=== PATIENT | female | born 1945 | race Caucasian/White ===

== ENCOUNTER 2019-06-12 20:36 | Emergency (ER) | payer BC, SELFPAY ==
[2019-06-12 20:40] VITALS: BP 144/79; PULSE 76; RESP 21; TEMP 36.7; O2SAT 99
--- NOTE | 2019-06-12 20:54 | W.ED.GENAD ---
Discharge Plan Disposition Patient Disposition: HOME Condition: Good Discharge Details Chief Complaint: Chest Pain Clinical Impression: Chest pain, Splenic mass Primary Care Provider: Huyen Sandoval ED Provider: Kenn Lewis Home Meds and New Rx's Prescriptions: No Action losartan 50 mg Tablet 50 mg PO BID RF: 0 lamotrigine 150 mg Tablet 150 mg PO DAILY RF: 0 atorvastatin 20 mg Tablet 20 mg PO HS RF: 0 metoprolol succinate 50 mg Tablet Extended Release 24 Hr 50 mg PO HS RF: 0 trazodone 100 mg Tablet 100 mg PO HS RF: 0 magnesium 200 mg Tablet 400 mg PO DAILY RF: 0 omega 4-wtt-ryr-fish oil [Fish Oil] 1,000 mg (120 mg-180 mg) Capsule 1 cap PO DAILY RF: 0 Discharge Instructions Instructions: Chest Pain (ED), Gastroesophageal Reflux Disease (ED) Additional Instructions: At this time your cardiac markers are normal and showed no evidence of heart attack at this time. With your symptoms completely resolving with the GI cocktail I do feel that there certainly is a component of reflux. Please avoid spicy foods, tomato-based products, citrus-based foods. Please use Pepto-Bismol or Maalox as needed for return of the symptoms. If you notice any worsening or return of your symptoms, or any new symptoms such as vomiting, diarrhea, fever, chills, shortness of breath, chest pain, numbness, weakness, or fainting , please return immediately to the emergency department for reevaluation. Please follow up with your primary care provider as soon as possible for reassessment and reevaluation. As always, it was a pleasure participating in your medical care today. Also the CT scan did show an incidental finding of a 2.6 cm lobular mass near the area of where your spleen would be. This is likely nonspecific and not a problem or it could be a remnant of your spleen, however would recommend close follow-up and repeat evaluation with your primary care provider about this. When you do arrive home at [facility] please use your lateral device to transmit your pacemaker findings. Referrals: Emmanuel Brock [ NON-[facility] STAFF PHYSICIAN] - Discharge Data Discharge Date/Time-TO BE ENTERED AT DEPARTURE: 06/13/19 00:25 Medical Decision Making This is a 73-year-old female with a past medical history of a pacemaker, hypertension, high cholesterol, tobacco use, who presents for 1 day of mild shortness of breath neck pressure, came on today, does not appear to be exertional related. She states that she felt just like this when she had a pacemaker placed 2 years ago. She denies any chest tightness, chest pain, neck pain, arm neck or shoulder pain. She did have cataract surgery 1 week ago. She denies history of PE or DVT. Exam is relatively unremarkable. Differential is broad, but does include atypical but less likely ACS, PE, musculoskeletal chest pain, dehydration or electrolyte abnormality. Symptoms and consistent with dissection. Will interrogate the pacemaker, perform cardiac work-up, give GI cocktail, get a d-dimer and reassess. 9:52 PM Patient's laboratory work-up including troponin have returned normal. Were unable to interrogate her pacemaker here, and the [employer] liaison will come to interrogated. D-dimer is elevated, will get CTA of the chest to rule out PE. Patient's pain does appear to be resolved with GI cocktail which is certainly encouraging. We will continue to monitor closely. Also of note the x-ray does show evidence of an age-indeterminate vertebral body compression deformity with 50% height loss, however upon historical questioning of the patient she states that this was from an old horse accident years ago. She has no acute pain. No signs of cauda equina syndrome. 10:47 PM Patient's symptoms completely resolved after GI cocktail. Laboratory work-up is negative for any evidence of troponin elevation or significant abnormality. D-dimer was elevated, CTA shows no evidence of pulmonary embolism or dissection. There is an atypical 2.6 cm lobular mass in the area of the spleen is an incidental finding but no other acute process. 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 We will encourage close follow-up. There is some diffuse patchy groundglass attenuation, may represent edema or atypical infection however she has no clinical symptoms of pneumonia no cough, fever or chills. Symptoms are inconsistent with atypical pneumonia. At this time the patient continues to feel well. We are pending repeat troponin and EKG. If these continue to remain normal I feel that she can be safely discharged home as her signs and symptoms being consistent with ACS significant cardiac etiology. Also of note we did have the [employer] surgical device sales representative evaluate the readings from the patient's pacemaker. No abnormalities noted. 12:30 AM Patient continues to remain pain-free, repeat EKG and repeat troponin are unremarkable. Signs and symptoms clinically consistent with ACS, dissection, PE or life-threatening etiology. I feel at this time the patient be safely discharged home with close follow-up with her PCP. She had complete resolution of her symptoms after taking GI cocktail, so certainly may be a component of her symptoms. Discussed appropriate dietary for avoidance of reflux. Discussed red flags which to return. I have extensively reviewed the treatment plan and discharge instructions with the patient and their family. I have addressed all patient concerns at this time. The patient and family was made aware of what symptoms to monitor for that would warrant a return to the emergency department. Discussed the plan with the patient and family, they demonstrate verbal understanding and agreement with our assessment and plan at this time. 1:58 AM The patient has sent the finalized report from her lateral device, and we again contacted [employer] and on review of the report there is no evidence of dysrhythmia, or abnormality whatsoever. EKG 20: 43 Rate 81, electronic ventricular pacing with complete capture, negative for SCARBOSSA criteria. EKG 23: 54 Rate 81, electronic ventricular pacing with complete capture, negative for SCARBOSSA criteria. IMPRESSION: 1. No acute cardiopulmonary process. 2. Age indeterminate vertebral body compression deformity with approximate 50% height loss. Recommend clinical correlation and consider further evaluation with MRI if there is concern for acute fracture. Thank you for allowing us to participate in the care of your patient. FINDINGS: Tubes, catheters and devices: Dual lead left pacemaker with leads terminating in the right atrium and right ventricular apex. Pulmonary arteries: No pulmonary embolism. Aorta: Prominent coarse calcification in the suprarenal abdominal aorta. Mild thoracic aortic calcified atherosclerosis. Lungs: Emphysema. Bibasilar atelectasis/scar. Diffuse patchy ground-glass attenuation. Pleural space: Unremarkable. No pneumothorax. No pleural effusion. Heart: Cardiomegaly. Coronary artery and aortic annular calcifications. Spleen: Surgically absent. Lymph nodes: Prominent right cardiophrenic lymph node is not pathologically enlarged per size criteria. Bones/joints: Age-indeterminate small fracture line through the T11 superior endplate with slight 2-3 mm bony retropulsion and approximate 25% ventral height loss. Soft tissues: Nonspecific 2.0 x 2.6 cm lobular mass in the left upper quadrant. IMPRESSION: 1. No pulmonary embolism. 2. Age-indeterminate small fracture through the T11 superior endplate with slight 2-3 mm bony retropulsion. Recommend clinical correlation and further evaluation with MRI if there is concern for acute fracture. 3. Non-specific 2.6 cm lobular mass in the left upper quadrant is not definitely a splenule. Consider further evaluation with multiphase CT or MRI or nuclear medicine on an outpatient basis. 4. Diffuse patchy ground-glass attenuation may represent edema or atypical infection. No focal consolidation. Thank you for allowing us to participate in the care of your patient. Dictated and Authenticated by: Sanford Prather MD 06/12/2019 10:37 PM Eastern Time ([place] & [place]) HPI General Date/Time Provider Initiated Documentation: 06/12/19 20:41. HPI Narrative: This is a 73-year-old female with a past medical history of a pacemaker as well as high cholesterol hypertension tobacco use, who presents today for mild amount of shortness of breath and neck and chest heaviness that started this afternoon. Symptoms appear to be nonexertional. No particular aggravating or relieving factors. She denies any chest pain, chest tightness, arm neck or shoulder pain. She denies any exertional discomfort. She does admit to a very minimal amount of pleuritic chest pain. She denies any cough fever chills or hemoptysis. She did have cataract surgery 1 week ago. Pacemaker was placed 2 years ago at [facility]. She denies any history of myocardial infarction but does admit to a family history of massive cardiac disease at 75. She has no other complaints at this time. No other modifying factors. No history of blood clot in the past. Related Data Home Medications Medication Instructions Recorded Confirmed atorvastatin 20 mg PO HS 06/12/19 06/12/19 lamotrigine 150 mg PO DAILY 06/12/19 06/12/19 losartan 50 mg PO BID 06/12/19 06/12/19 magnesium 400 mg PO DAILY 06/12/19 06/12/19 metoprolol succinate 50 mg PO HS 06/12/19 06/12/19 omega 8-ixx-ezh-fish oil [Fish Oil] 1 cap PO DAILY 06/12/19 06/12/19 trazodone 100 mg PO HS 06/12/19 06/12/19 Allergies Allergy/AdvReac Type Severity Reaction Status Date / Time aripiprazole [From Abilify] Allergy Unverified 06/12/19 20:50 lisinopril Allergy Unverified 06/12/19 20:50 General Stated Complaint: Chest Pain HARIS: 2 Review of Systems All systems reviewed & are unremarkable except as noted in HPI and below PFSH Social History Do you feel safe at home: Yes Exam Narrative Exam Narrative: 1.Const: Well-nourished, Well-developed, appearing stated age 2.Eyes: PERRL, no conjunctival injection, and symmetrical lids. 3.ENT: Atraumatic external nose and ears. Moist MM. Neck: Symmetric, trachea midline, No thyromegaly. 4.CVS: +S1/S2, No murmurs or gallops. Peripheral pulses 2+ and equal in all extremities. Brisk capillary refill in all extremities. No tenderness over the left anterior chest wall where the pacemaker is. No redness. 5.RESP: Unlabored respiratory effort. Clear to auscultation bilaterally. No wheezes rales or rhonchi 6.GI: Soft, Nontender/Nondistended, No hepatosplenomegaly. No guarding or rebound. 7.MSK: Normocephalic/Atraumatic, Extremities w/o deformity or ttp No cyanosis or clubbing, Normal movement of all extremities. No significant calf edema. Minimal tenderness in the left lower lateral calf. No other tenderness whatsoever. 8.Skin: Warm, Dry. No rashes or lesions. 9.Neuro: hand laster II-XII grossly intact. Sensation grossly intact, no focal neurologic deficits. 10.Psych: (AAO) x3. Appropriate mood and affect Course Vital Signs Vital signs: Vital Signs Temperature 36.7 C 06/12/19 20:40 Pulse 76 06/12/19 20:40 Respiratory Rate 21 06/12/19 20:40 Blood Pressure 144/79 H 06/12/19 20:40 Pulse Oximetry 99 06/12/19 20:40 Temperature 36.7 C 06/12/19 20:40 Temperature Source Skin 06/12/19 20:40 Pulse 76 06/12/19 20:40 Respiratory Rate 21 06/12/19 20:40 Respiratory Effort Non-Labored 06/12/19 20:45 Blood Pressure 144/79 H 06/12/19 20:40 Blood Pressure Position Supine 06/12/19 20:40 Pulse Oximetry 99 06/12/19 20:40 Oxygen Delivery Method Room Air 06/12/19 20:40 Oxygen Flow Rate 0 06/12/19 20:40 Pain Level 6 06/12/19 20:40
[2019-06-12 20:56] VITALS: RESP 23
[2019-06-12] MEDS: Acetaminophen 500 MG TAB 1000 MG PO (20:59)
[2019-06-12] MEDS: Normal Saline 1,000 ML 1000 ML IV (21:00)
[2019-06-12 21:04] VITALS: BP 124/83; PULSE 71; PULSE 72; RESP 18
--- NOTE | 2019-06-12 21:09 | DI.RAD_ITS ---
EXAM: XR CHEST 2V PA LATERAL INDICATION: central chest pain. COMPARISON: No exams were available for comparison TECHNIQUE: 2D digital imaging was performed. FINDINGS: The heart size and pulmonary vasculature are within normal limits. There is atherosclerosis in the t horacic aorta. Pacing wires are in good position overlying the right atrium and right ventricle. Th e lungs are clear. The lungs are hyperinflated suggesting underlying COPD. No focal infiltrate, eff usion or pneumothorax is identified. Degenerative changes are seen in the spine. There is a tanja dustin deformity seen at T12. There is loss of 40 percent of the height of the vertebral body. This i s age indeterminate. IMPRESSION: 1. No acute pulmonary process. 2. Age-indeterminate compression fracture deformity of the T12 vertebral body. Follow-up as clinical ly appropriate.
[2019-06-12 21:15] LABS: Abs Immature Grans 0.01 k/cumm (0.0-0.09); Absolute Basophil Count 0.06 k/cumm (0.0-0.2); Absolute Eosinophil Count 0.23 k/cumm (0.0-0.7); Absolute Lymphocyte Count 2.68 k/cumm (1.2-3.4); Absolute Monocyte Count 1.22 k/cumm (0.11-0.7); Basophils % 0.7; Eosinophils % 2.8; HCT 41.3 % (36.0-46.0); HGB 13.9 g/dL (12.0-15.5); Immature Grans % 0.1 %; Lymphocytes % 32.7; Mean Corp. HGB Concentration 33.7 g/dL (32.0-36.0); Mean Corpuscular Hemoglobin 30.3 pg (27.0-33.0); Mean Platelet Volume 9.3 fL (8.0-11.0); Monocytes % 14.9; Neutrophils % 48.8; Platelet Count 274 x1000/uL (130-400); RBC 4.59 m/cumm (4.00-5.20); RBC Distribution Width 15.2 % (11.7-14.6)
--- NOTE | 2019-06-12 21:15 | DI.VRAD_ITS ---
PROCEDURE INFORMATION: Exam: XR Chest, 2 Views Exam date and time: 06/12/2019 8:53 PM Age: 73 years old Clinical indication: Other: Central chest pain TECHNIQUE: Imaging protocol: XR of the chest Views: 2 views. COMPARISON: No relevant prior studies available. FINDINGS: Tubes, catheters and devices: Left dual lead pacemaker with leads projecting over the right atrium and right ventricular apex. Lungs: Unremarkable. No consolidation. Pleural space: Unremarkable. No pleural effusion. No pneumothorax. Heart/Mediastinum: Unremarkable. No cardiomegaly. Bones/joints: Age-indeterminate lower thoracic vertebral body compression deformity with approximate 50% height loss. Other findings: Surgical clips in left upper quadrant. IMPRESSION: 1. No acute cardiopulmonary process. 2. Age indeterminate vertebral body compression deformity with approximate 50% height loss. Recommend clinical correlation and consider further evaluation with MRI if there is concern for acute fracture. Dictated and Authenticated by: Sanford Prather MD. Ordering:RAUDEL Hawk MD
[2019-06-12 21:28] LABS: ALT 29 U/L (14-59); AST 26 U/L (15-37); Albumin 3.9 g/dL (3.4-5.0); Alkaline Phosphatase 76 U/L (46-116); Anion Gap 10.3 mmol/L (3-11); BUN 24 mg/dL (7-18); Bilirubin, Total 0.3 mg/dL (0.2-1.0); CO2 26.7 mmol/L (21.0-32.0); CREATININE 0.94 mg/dL (0.55-1.02); Calcium 9.5 mg/dL (8.5-10.1); Chloride 107 mmol/L (98-107); Glucose 108 mg/dL (74-106); Lipase 373 U/L (73-393); NT-proBNP 229 pg/mL (<300); Potassium 3.8 mmol/L (3.5-5.1); Sodium 144 mmol/L (136-145); TSH (W/Ref FT4) 2.37 uIU/mL (0.36-3.74); Total Protein 7.4 g/dL (6.4-8.2)
[2019-06-12 21:32] LABS: PTT Activated 23.6 sec (21.0-31.4); Prothrombin Time 9.9 sec (9.3-11.0)
[2019-06-12 21:41] VITALS: BP 93/66; PULSE 70; RESP 16; O2SAT 95
[2019-06-12 21:42] LABS: Troponin I < 0.05 ng/Ml (<0.06)
--- NOTE | 2019-06-12 21:42 | NUR.NOTE ---
Attempted to interrogate pacer, unable to get reading with either blue or mejia probe. Debbie aware
[2019-06-12 21:44] LABS: D-Dimer 1350 ng/mlFEU (<500)
--- NOTE | 2019-06-12 22:08 | DI.CT_ITS ---
EXAM: CT CHEST PE CTA CLINICAL HISTORY: elevated dimer, CP, recent surgery. TECHNIQUE: Imaging Protocol: Axial CT angiography was performed with multi-slice acquisition and mu lti-planar and/or 3D reconstructions. CONTRAST MATERIAL: Intravenous: Omnipaque 350 Contrast volume:61 mL COMPARISON: XR CHEST 2V PA LATERAL from 06/12/2019 FINDINGS: Pulmonary Arteries: No evidence of filling defect to suggest pulmonary emboli. Tracheobronchial tree: Patent where visualized. Mediastinum and Tiffany: No dominant adenopathy or fluid collection. Pulmonary parenchyma: There is atelectasis or scarring in the lung bases. Scattered ground-glass opa cities are present. No focal consolidating infiltrate is seen. Emphysematous changes are seen in th e lungs. Pleura: No effusion or pneumothorax. Heart: Mild cardiomegaly. No pericardial effusion. No evidence of right heart strain. Coronary walter ry calcifications. Aorta: Calcifications. No evidence of aneurysm or dissection. Upper abdomen: The patient is status post splenectomy. There is a 2 x 2.6 centimeter soft tissue ma ss in the left upper quadrant. This is nonspecific. While this may represent a splenule, other soft tissue masses cannot be excluded. Bones: Degenerative changes seen in the spine. Compression deformity of the T11 vertebral body. The re is loss of 25-40 percent of the height of the vertebral body anteriorly. There is minimal retropu lsion into the spinal canal but no central spinal canal stenosis is present. Tubes, Catheters, and Lines: There is a dual lead pacemaker with the leads terminating in the right a trium and right ventricle. IMPRESSION: 1. No evidence of a pulmonary embolus, thoracic aortic dissection or aneurysm. 2. Patchy ground-glass opacities in the lungs. This may represent edema or an atypical infection. No focal consolidation is present. 3. Nonspecific 2.6 cm mass in the left upper quadrant of the abdomen. The patient is status post spl enectomy. This may represent a splenule. Soft tissue masses cannot be excluded. 4. Age-indeterminate fracture of the superior endplate of T11. Follow-up as clinically appropriate. If there is concern for an acute fracture, an MRI may be obtained. DATA REPOSITORY: All CT scans at this facility are submitted to the National Radiology Data Registry (NRDR) Dose Index Registry (DIR) with the [employer] (ACR). RADIATION OPTIMIZATION: All CT scans at this facility use at least one of these dose optimization te chniques: automated exposure control; mA and/or kV adjustment per patient size (includes targeted exa ms where dose is matched to clinical indication); or iterative reconstruction.
[2019-06-12] MEDS: Omnipaque 350 MG/ML 100 ML BTL IJ (22:11)
--- NOTE | 2019-06-12 22:37 | DI.VRAD_ITS ---
PROCEDURE INFORMATION: Exam: CT Angiography Chest With Contrast Exam date and time: 06/12/2019 10:06 PM Age: 73 years old Clinical indication: Other: Elevated d-dimer, chest pain, recent surgery; Prior surgery; Surgery date: 6+ months TECHNIQUE: Imaging protocol: Computed tomographic angiography of the chest with intravenous contrast. 3D rendering: MIP and/or 3D reconstructed images were created by the technologist. Radiation optimization: All CT scans at this facility use at least one of these dose optimization techniques: automated exposure control; mA and/or kV adjustment per patient size (includes targeted exams where dose is matched to clinical indication); or iterative reconstruction. Contrast material: [id number]; Contrast volume: 61 ml; Contrast route: IV RT AC 20G; COMPARISON: XR CHEST 2V PA LATERAL 06/12/2019 9:09 PM FINDINGS: Tubes, catheters and devices: Dual lead left pacemaker with leads terminating in the right atrium and right ventricular apex. Pulmonary arteries: No pulmonary embolism. Aorta: Prominent coarse calcification in the suprarenal abdominal aorta. Mild thoracic aortic calcified atherosclerosis. Lungs: Emphysema. Bibasilar atelectasis/scar. Diffuse patchy ground-glass attenuation. Pleural space: Unremarkable. No pneumothorax. No pleural effusion. Heart: Cardiomegaly. Coronary artery and aortic annular calcifications. Spleen: Surgically absent. Lymph nodes: Prominent right cardiophrenic lymph node is not pathologically enlarged per size criteria. Bones/joints: Age-indeterminate small fracture line through the T11 superior endplate with slight 2-3 mm bony retropulsion and approximate 25% ventral height loss. Soft tissues: Nonspecific 2.0 x 2.6 cm lobular mass in the left upper quadrant. IMPRESSION: 1. No pulmonary embolism. 2. Age-indeterminate small fracture through the T11 superior endplate with slight 2-3 mm bony retropulsion. Recommend clinical correlation and further evaluation with MRI if there is concern for acute fracture. 3. Non-specific 2.6 cm lobular mass in the left upper quadrant is not definitely a splenule. Consider further evaluation with multiphase CT or MRI or nuclear medicine on an outpatient basis. 4. Diffuse patchy ground-glass attenuation may represent edema or atypical infection. No focal consolidation. Dictated and Authenticated by: Sanford Prather MD. Ordering:RAUDEL Hawk MD
--- NOTE | 2019-06-12 22:39 | NUR.NOTE ---
Pt reports pain down to 1/10 after GI Cocktail. Plan for repeat trop and EKG at 0000. Pt aware of and agreeable to plan.
[2019-06-12 22:40] VITALS: BP 123/49; PULSE 68; RESP 16; O2SAT 95
[2019-06-13 00:11] LABS: Troponin I < 0.05 ng/Ml (<0.06)
[2019-06-13 00:22] VITALS: BP 128/43; PULSE 68; RESP 20; O2SAT 95
== END 2019-06-13 00:25 | disposition home or self-care (01) ==
PROVIDERS: Emergency Provider Student in an Organized Health Care Education/Training Program; PCP Registered Nurse
DX: R07.9 Chest pain, unspecified (principal); R93.5 Abnormal findings on diagnostic imaging of other abdominal regions, including retroperitoneum; R79.1 Abnormal coagulation profile; Z95.0 Presence of cardiac pacemaker; I10 Essential (primary) hypertension
CPT/HCPCS: 71275; 80053; 83690; 93005; 96360; 96361; 99285; 71046; 83880; 84443; 84484; 85025; 85379; 85610; 85730; 93010; 99284; J3490

== ENCOUNTER 2020-06-08 14:58 | Outpatient (REF) | payer BC, SELFPAY ==
[2020-06-08 15:42] LABS: Abs Immature Grans 0.02 10^3/uL (0.0-0.06); Absolute Basophil Count 0.07 10^3/uL (0.0-0.2); Absolute Eosinophil Count 0.21 10^3/uL (0.0-0.7); Absolute Lymphocyte Count 2.43 10^3/uL (1.2-3.4); Absolute Monocyte Count 0.91 10^3/uL (0.1-0.8); Absolute Neutrophil Count 5.45 10^3/uL (1.2-6.7); Basophils % 0.8; Eosinophils % 2.3; HGB 14.2 g/dL (11.2-15.7); Immature Grans % 0.2; Lymphocytes % 26.7; MCH 30.8 pg (27.0-33.0); MCHC 32.3 % (32.0-36.0); MCV 95.4 fL (80-95); MPV 10.1 fL (8.0-11.0); Nucleated RBC 0 %; Platelet Count 233 10^3/uL (130-400); RBC 4.61 10^6/uL (3.93-5.22); RDW 13.8 % (11.7-14.6); RDW-SD 48.9 fL; WBC 9.09 10^3/uL (4.4-10.8)
[2020-06-08 15:58] LABS: Iron 69 ug/dL (50-170); Total Iron Binding Capacity 342 ug/dL (250-450); Transferrin Sat 20 % (15-50)
[2020-06-08 16:25] LABS: ALT 33 U/L (14-59); AST 24 U/L (15-37); Albumin 4.4 g/dL (3.4-5.0); Alkaline Phosphatase 78 U/L (46-116); BUN 20 mg/dL (7-18); Bilirubin, Total 0.4 mg/dL (0.2-1.0); CREATININE 1.04 mg/dL (0.55-1.02); Calcium 9.4 mg/dL (8.5-10.1); Calculated LDL 112 mg/dL (<100); Chloride 105 mmol/L (98-107); Cholesterol 189 mg/dL (<200); Estimated GFR 52.09 (mL/min/1.73m2); Ferritin 67 ng/mL (8-252); Glucose 93 mg/dL (74-106); HDL Cholesterol 67 mg/dL (40-60); Magnesium 2.3 mg/dL (1.8-2.4); Potassium 4.5 mmol/L (3.5-5.1); Sodium 141 mmol/L (136-145); TSH (W/Ref FT4) 1.36 uIU/mL (0.36-3.74); Total Protein 7.8 g/dL (6.4-8.2); Triglyceride 52 mg/dL (<150)
[2020-06-08 16:26] LABS: Vitamin B12 > 2000 pg/mL (193-986)
== END 2020-06-08 15:18 ==
LOC: NCHCN 14:58
PROVIDERS: PCP Registered Nurse; Visit Provider Physician Assistant
DX: I10 Essential (primary) hypertension (principal); E78.5 Hyperlipidemia, unspecified; R25.2 Cramp and spasm
CPT/HCPCS: 80053; 80061; 82607; 82728; 83540; 83550; 83735; 84443; 85025

== ENCOUNTER 2021-02-04 12:59 | Emergency (ER) | payer BC, SELFPAY ==
--- NOTE | 2021-02-04 13:15 | W.ED.GENAD ---
Discharge Plan Disposition Patient Disposition: HOME Condition: Stable Discharge Details Clinical Impression: Acute knee pain Primary Care Provider: Emmanuel Brock ED Provider: Eunice Chino Home Meds and New Rx's Prescriptions: New diclofenac sodium 3 % gel 1 applic topical BID Qty: 100 RF: 0 No Action losartan 50 mg Tablet 50 mg PO BID RF: 0 lamotrigine 150 mg Tablet 150 mg PO DAILY RF: 0 atorvastatin 20 mg Tablet 20 mg PO HS RF: 0 metoprolol succinate 50 mg Tablet Extended Release 24 Hr 50 mg PO HS RF: 0 trazodone 100 mg Tablet 100 mg PO HS RF: 0 magnesium 200 mg Tablet 400 mg PO DAILY RF: 0 omega 5-xmg-beb-fish oil [Fish Oil] 1,000 mg (120 mg-180 mg) Capsule 1 cap PO DAILY RF: 0 aspirin [Aspir-81] 81 mg Tablet,Delayed Release (Dr/Ec) RF: 0 Discharge Instructions Instructions: Knee Pain (ED) Additional Instructions: ice, rest use your brace tylenol 650 mg every 4 hours for pain Diclofenac gel topically Follow-up with orthopedics, I have supplied an orthopedist for you to follow-up with You do have a Rushing's cyst in your knee likely contributing to your discomfort Referrals: Quincy Romero MD [ [facility] STAFF PHYSICIAN] - Discharge Data Discharge Date/Time-TO BE ENTERED AT DEPARTURE: 02/04/21 17:51 Medical Decision Making <JEANNA North - Last Filed: 02/05/21 08:05> This is a 75-year-old female who fell 4 days ago, noticed knee pain developing a day or so later. She reports the pain was initially anterior but now is posterior and extends into her calf. Denies fever, any other injury, chest pain, shortness of breath, numbness, tingling, weakness. Denies history of DVT or PE. Her knee appears stable, no erythema, warmth. Clinically this very well could be musculoskeletal given her fall but given the pain began the day later certainly would like to rule out potential DVT. Unfortunately it is a long holiday weekend and ultrasound is likely not available until Saturday, I would rather not have the patient on Lovenox until that time. I will obtain a left knee x-ray and obtain an ultrasound to evaluate for potential DVT and/or Rushing's cyst. Radiology department was contacted and they are in fact able to call him and aerospace technician to perform the study today. At time of signout pending x-ray and ultrasound Medical Records Medical records reviewed: Yes I reviewed the patient's medical records. <JEANNA Matson - Last Filed: 02/04/21 19:59> Transition of care from Kimani Fuchs PA-C at 1600 pending ultrasound interpretation and x-ray interpretation Patient is well in appearance, she is ambulatory with antalgic gait She has been seen at home She is placed in a hinged knee brace Diclofenac prescription and Tylenol recommended Orthopedic referral provided for popliteal Rushing's cyst, noted on ultrasound, x-ray without acute abnormality Return precautions discussed and patient understanding, no evidence of secondary infection, distal pulses intact HPI <JEANNA North - Last Filed: 02/05/21 08:05> General Mode of arrival: ambulatory. Date/Time Provider Initiated Documentation: 02/04/21 13:15. Limitations to Documentation: no limitations. Information obtained by: patient. HPI Narrative: This is a 75-year-old female, past medical history that includes hypertension, PVD, presenting complaining of left leg pain. Patient states that she fell 4 days ago, mechanical slip and fall, landing on her left side. Initially she did not think she hurt anything but subsequently at the next day she noticed some left anterior knee pain which is mild. A day later she developed more substantial posterior left knee pain as well as calf pain. She is not anticoagulated, denies striking her head, neck pain, chest pain, shortness of breath, history of DVT or PE. She has not taken any medication for her symptoms. Reports baseline neuropathy, altered sensation in her legs but denies any new altered sensation. Patient states that she typically ambulates without assistance. Reports her pain is moderate at rest, worse with ambulation or movement. Related Data Home Medications Medication Instructions Recorded Confirmed atorvastatin 20 mg PO HS 06/12/19 02/04/21 lamotrigine 150 mg PO DAILY 06/12/19 02/04/21 losartan 50 mg PO BID 06/12/19 02/04/21 magnesium 400 mg PO DAILY 06/12/19 02/04/21 metoprolol succinate 50 mg PO HS 06/12/19 02/04/21 omega 7-izu-tba-fish oil [Fish Oil] 1 cap PO DAILY 06/12/19 02/04/21 trazodone 100 mg PO HS 06/12/19 02/04/21 aspirin [Aspir-81] 02/04/21 diclofenac sodium 1 applic TOPICAL BID #100 g 02/04/21 Previous Rx's Medication Instructions Recorded diclofenac sodium 1 applic TOPICAL BID #100 g 02/04/21 Allergies Allergy/AdvReac Type Severity Reaction Status Date / Time aripiprazole [From [facility]] Allergy Unverified 02/04/21 13:33 lisinopril Allergy Unverified 02/04/21 13:33 General HARIS: 2 Review of Systems <JEANNA North - Last Filed: 02/05/21 08:05> Constitutional Constitutional: Denies fever(s) and Denies weakness Cardiovascular Cardiovascular: Denies chest pain and Denies dyspnea Respiratory Respiratory: Denies dyspnea Musculoskeletal Musculoskeletal: Denies deformity, Reports arthralgias, Reports numbness (Baseline) and Reports stiffness Integumentary/Breasts Skin/Breast: Denies rash Neurologic Neurologic: Denies weakness Hematologic/Lymphatic Hematologic/Lymphatic: Denies easy bleeding and Denies easy bruising PFSH <JEANNA North - Last Filed: 02/05/21 08:05> Social History Smoking/Tobacco Use Status: Never Smoking risk assessment performed?: Yes Alcohol Intake: never Substance use type: former substance user Do you feel safe at home: Yes Exam <JEANNA North - Last Filed: 02/05/21 08:05> Const General: cooperative, healthy appearing, comfortable and no acute distress Orientation: alert and awake [facility] Head: normal to inspection, normocephalic and atraumatic Eyes General: appearance normal, both eyes and all related structures Conjunctivae: conjunctivae normal Neck Neck: normal visual inspection, full ROM, trachea midline and supple Resp Effort & Inspection: normal respiratory effort and able to speak in complete sentences Auscultation: clear to auscultation bilaterally Cardio Rate: regular rate Rhythm: regular rhythm Back/Spine/Pelvis Back: No back tenderness Skin General skin exam: no rashes or lesions noted Neuro General: patient alert, patient awake, moves all extremities and no focal motor deficits Cognition: normal cognition Speech: speech normal Gait: antalgic Motor: muscle tone normal throughout Sensory Exam: no sensory deficits noted Extrem General: full ROM and capillary refill normal Other: Left knee diffuse mild anterior swelling with tenderness across the anterior and medial aspect. There is no erythema, warmth, ecchymosis. Patient does have posterior left knee discomfort that extends jail down the calf, no palpable cord, obvious swelling, erythema or ecchymosis. Positive Homans' sign. 1+ bilateral dorsalis pedal pulses. Normal capillary refill. Knee with full range of motion, stable, mild discomfort with anterior draw. No discomfort with varus or valgus stress. Psych Appearance: grossly normal Mental Status: mental status grossly normal Sign Out <JEANNA North - Last Filed: 02/05/21 08:05> Sign Out Data: Sign Out Comment: Awaiting left knee x-ray and ultrasound Last updated by Kimani Fuchs PA at 02/04/21 15:55
[2021-02-04 13:28] VITALS: BP 106/81; PULSE 66; RESP 16; TEMP 36.6; O2SAT 97
--- NOTE | 2021-02-04 13:30 | DI.RAD_ITS ---
Exam(s) XR KNEE LT 4V+ EXAM: XR KNEE LT 4V+ CLINICAL HISTORY: fall/pain. TECHNIQUE: 2D digital imaging was performed. COMPARISON: No exams were available for comparison FINDINGS: BONES: No acute fracture is present. No bony destructive lesion is seen. JOINTS: The knee is normally aligned. No joint effusion is seen. Mild degenerative changes. SOFT TISSUE: Vascular calcifications IMPRESSION: No acute abnormality. DATA REPOSITORY: RADIATION DOSE DELIVERED:
--- NOTE | 2021-02-04 14:30 | DI.US_ITS ---
Exam(s) US LOWER EXTREMITY VENOUS LT EXAM: US LOWER EXTREMITY VENOUS LT CLINICAL HISTORY: pain, concern for dvt. TECHNIQUE: Lower extremity venous ultrasound performed using grayscale, color-flow, and spectral Do ppler analysis. COMPARISON: No exams were available for comparison FINDINGS: The common femoral, femoral and popliteal veins demonstrate normal compressibility, augmentation, and color Doppler. The posterior tibial veins are patent. No saphenous vein thrombosis or other superfi cial venous thrombosis is seen. A knee joint effusion is seen. Edema is noted in the medial calf re gion. IMPRESSION: Joint effusion and calf edema. No evidence of DVT. DATA REPOSITORY:
--- NOTE | 2021-02-04 16:14 | DI.VRAD_ITS ---
PROCEDURE INFORMATION: Exam: XR Left Knee Exam date and time: 02/04/2021 1:35 PM Age: 75 years old Clinical indication: Injury; Fall; Blunt trauma left knee; Best obtainable due to pain TECHNIQUE: Imaging protocol: XR Left knee. Views: 4 or more views. COMPARISON: No relevant prior studies available. FINDINGS: Bones/joints: No acute fracture. No dislocation. No focal osseous lesion. No significant degenerative change. No joint effusion by plain film. Soft tissues: No soft tissue radiopaque foreign body. IMPRESSION: No acute findings. Dictated and Authenticated by: Rodolfo Brewer MD. Ordering:JULIETH Harman MD
[2021-02-04 16:24] VITALS: BP 146/48; PULSE 68; RESP 18; TEMP 37.5; O2SAT 99
--- NOTE | 2021-02-04 16:37 | DI.VRAD_ITS ---
PROCEDURE INFORMATION: Exam: US Duplex Left Lower Extremity Veins, Limited Exam date and time: 02/04/2021 2:35 PM Age: 75 years old Clinical indication: Fall, left-sided trauma. Increasing posterior left knee / calf pain. TECHNIQUE: Imaging protocol: Real-time Duplex ultrasound of the Left Lower Extremity with 2-D mejia scale, color Doppler flow and spectral waveform analysis with image documentation. Limited exam focused on the left lower extremity veins. COMPARISON: CR XR KNEE LT 4V+ 02/04/2021 3:37 PM FINDINGS: Left deep veins: Unremarkable. The common femoral, femoral, proximal profunda femoral and popliteal veins are patent without thrombus. Normal Doppler waveforms. Normal compressibility and/or augmentation response. Left superficial veins: Unremarkable. Saphenofemoral junction is patent without thrombus. Soft tissues: Left Rushing's cyst measuring 2.9 x 1.6 x 2.8 cm. Soft tissue edema within the medial left calf region. IMPRESSION: 1. No deep venous thrombosis of the left lower extremity. 2. Left Rushing's cyst measuring 2.9 x 1.6 x 2.8 cm. Soft tissue edema within the medial left calf region. Dictated and Authenticated by: Rodolfo Brewer MD. Ordering:JULIETH Harman MD
[2021-02-04] MEDS: Acetaminophen 325 MG TAB 650 MG PO (16:55)
[2021-02-04 17:49] VITALS: BP 146/48; PULSE 68; RESP 18; TEMP 37.5; O2SAT 99
== END 2021-02-04 17:51 | disposition home or self-care (01) ==
PROVIDERS: Emergency Provider Physician Assistant; PCP Internal Medicine
DX: M25.562 Pain in left knee (principal); M79.662 Pain in left lower leg
CPT/HCPCS: 29505; 99284; 73564; 93971; 99283

== ENCOUNTER 2021-04-12 08:48 | Outpatient (REF) | payer BC, SELFPAY ==
[2021-04-13 08:01] LABS: BUN 23 mg/dL (7-18); Calcium 9.4 mg/dL (8.5-10.1); Calculated LDL 78 mg/dL (<100); Cholesterol 148 mg/dL (<200); Estimated GFR 54.35 (mL/min/1.73m2); Glucose 103 mg/dL (74-106); HDL Cholesterol 59 mg/dL (40-60); Triglyceride 59 mg/dL (<150)
[2021-04-13 08:02] LABS: ALT 31 U/L (14-59); AST 24 U/L (15-37); Albumin 4.1 g/dL (3.4-5.0); Alkaline Phosphatase 90 U/L (46-116); Anion Gap 10.9 mmol/L (3-11); Bilirubin, Total 0.5 mg/dL (0.2-1.0); CO2 24.1 mmol/L (21.0-32.0); Chloride 106 mmol/L (98-107); Potassium 4.8 mmol/L (3.5-5.1); Sodium 141 mmol/L (136-145); Total Protein 7.3 g/dL (6.4-8.2)
== END 2021-04-12 08:49 | disposition home or self-care (01) ==
LOC: NCHCN 08:48
PROVIDERS: PCP Internal Medicine; Visit Provider Physician Assistant
DX: I10 Essential (primary) hypertension (principal); E78.5 Hyperlipidemia, unspecified; I73.9 Peripheral vascular disease, unspecified; I65.23 Occlusion and stenosis of bilateral carotid arteries
CPT/HCPCS: 80053; 80061

== ENCOUNTER 2021-11-22 16:47 | Outpatient (REF) | payer BC, SELFPAY ==
[2021-11-22 20:56] LABS: Anion Gap 9.8 mmol/L (3-11); BUN 20 mg/dL (7-18); CO2 25.2 mmol/L (21.0-32.0); CREATININE 0.9 mg/dL (0.55-1.02); Chloride 101 mmol/L (98-107); Glucose 84 mg/dL (74-106); Potassium 4.8 mmol/L (3.5-5.1); Sodium 136 mmol/L (136-145)
== END 2021-11-22 16:48 | disposition home or self-care (01) ==
LOC: NCHCN 16:47
PROVIDERS: PCP Internal Medicine; Visit Provider Physician Assistant
DX: U07.1 COVID-19 (principal)
CPT/HCPCS: 80048

== ENCOUNTER 2022-02-07 08:53 | Outpatient (REF) | payer BC, SELFPAY ==
[2022-02-12 14:12] LABS: 2-OH-Ethyl-Flurazepam Negative ng/mL (Cutoff: 10); 7-NH-Clonazepam 120 ng/mL (Cutoff: 10); 7-NH-Flunitrazepam Negative ng/mL (Cutoff: 10); Alpha OH-Alprazolam Negative ng/mL (Cutoff: 10); Alpha-OH Midazolam Negative ng/mL (Cutoff: 10); Alpha-OH-Triazolam Negative ng/mL (Cutoff: 10); Benzodiazepines Interpretation Positive.; Chlordiazepoxide Negative ng/mL (Cutoff: 10); Clobazam Negative ng/mL (Cutoff: 10); Clonazepam Negative ng/mL (Cutoff: 10); Diazepam Negative ng/mL (Cutoff: 10); Flurazepam Negative ng/mL (Cutoff: 10); Lorazepam Negative ng/mL (Cutoff: 10); Midazolam Negative ng/mL (Cutoff: 10); N-Desmethylclobazam Negative ng/mL (Cutoff: 10); Prazepam Negative ng/mL (Cutoff: 10); Temazepam Negative ng/mL (Cutoff: 10); Zolpidem Carboxylic acid Negative ng/mL (Cutoff: 10)
== END 2022-02-07 08:54 | disposition home or self-care (01) ==
LOC: NCHCN 08:53
PROVIDERS: PCP Internal Medicine; Visit Provider Physician Assistant
DX: F41.0 Panic disorder [episodic paroxysmal anxiety] (principal)
CPT/HCPCS: 80346

== ENCOUNTER 2022-08-14 09:55 | Outpatient (REF) | payer BC, SELFPAY ==
[2022-08-14 19:29] LABS: Abs Immature Grans 0.02 10^3/uL (0.0-0.06); Absolute Basophil Count 0.09 10^3/uL (0.0-0.2); Absolute Eosinophil Count 0.12 10^3/uL (0.0-0.7); Absolute Lymphocyte Count 1.92 10^3/uL (1.2-3.4); Absolute Monocyte Count 0.67 10^3/uL (0.1-0.8); Absolute Neutrophil Count 5.45 10^3/uL (1.2-6.7); Basophils % 1.1; Eosinophils % 1.5; HCT 45.3 % (36.0-46.0); HGB 14.7 g/dL (11.2-15.7); Immature Grans % 0.2; Lymphocytes % 23.2; MCH 30.4 pg (27.0-33.0); MCHC 32.5 % (32.0-36.0); MCV 94 fL (80-95); MPV 9.8 fL (8.0-11.0); Monocytes % 8.1; Neutrophils % 65.9; Platelet Count 247 10^3/uL (130-400); RBC 4.84 10^6/uL (3.93-5.22); RDW 13.5 % (11.7-14.6); RDW-SD 46.1 fL; WBC 8.27 10^3/uL (4.4-10.8)
[2022-08-14 19:38] LABS: ALT 33 U/L (14-59); AST 30 U/L (15-37); Albumin 4.1 g/dL (3.4-5.0); Alkaline Phosphatase 79 U/L (46-116); Anion Gap 9.4 mmol/L (3-11); BUN 35 mg/dL (7-18); Bilirubin, Total 0.5 mg/dL (0.2-1.0); CO2 25.6 mmol/L (21.0-32.0); Calculated LDL 93 mg/dL (<100); Chloride 105 mmol/L (98-107); Cholesterol 178 mg/dL (<200); Estimated GFR 59.12 (mL/min/1.73m2); Glucose 101 mg/dL (74-106); HDL Cholesterol 75 mg/dL (40-60); Potassium 4.7 mmol/L (3.5-5.1); Sodium 140 mmol/L (136-145); Total Protein 7.8 g/dL (6.4-8.2); Triglyceride 51 mg/dL (<150)
== END 2022-08-14 09:56 | disposition home or self-care (01) ==
LOC: NCHCN 09:55
PROVIDERS: PCP Internal Medicine; Visit Provider Physician Assistant
DX: Z00.00 Encounter for general adult medical examination without abnormal findings (principal); I10 Essential (primary) hypertension; E78.5 Hyperlipidemia, unspecified
CPT/HCPCS: 80053; 80061; 85025

== ENCOUNTER 2023-01-01 19:23 | Outpatient (REF) | payer BC, SELFPAY ==
[2023-01-01 20:28] LABS: Abs Immature Grans 0.03 10^3/uL (0.0-0.06); Absolute Monocyte Count 1.18 10^3/uL (0.1-0.8); Absolute Neutrophil Count 5.08 10^3/uL (1.2-6.7); Basophils % 1.1; Eosinophils % 2.1; HCT 45.1 % (36.0-46.0); HGB 15.2 g/dL (11.2-15.7); Immature Grans % 0.3; Lymphocytes % 30.6; MCH 30.5 pg (27.0-33.0); MCHC 33.7 % (32.0-36.0); MCV 91 fL (80-95); MPV 10.2 fL (8.0-11.0); Monocytes % 12.4; Neutrophils % 53.5; Platelet Count 239 10^3/uL (130-400); RBC 4.98 10^6/uL (3.93-5.22); RDW 13.8 % (11.7-14.6); RDW-SD 46.3 fL; WBC 9.49 10^3/uL (4.4-10.8)
[2023-01-01 20:42] LABS: ALT 33 U/L (14-59); AST 33 U/L (15-37); Albumin 3.9 g/dL (3.4-5.0); Alkaline Phosphatase 84 U/L (46-116); Anion Gap 9.3 mmol/L (3-11); BUN 37 mg/dL (7-18); Bilirubin, Total 0.3 mg/dL (0.2-1.0); CO2 22.7 mmol/L (21.0-32.0); CREATININE 0.9 mg/dL (0.55-1.02); Calcium 9.9 mg/dL (8.5-10.1); Chloride 105 mmol/L (98-107); Estimated GFR 66.67 (mL/min/1.73m2); Glucose 93 mg/dL (74-106); Potassium 4.6 mmol/L (3.5-5.1); Sodium 137 mmol/L (136-145); TSH (W/Ref FT4) 1.48 uIU/mL (0.36-3.74); Total Protein 7.9 g/dL (6.4-8.2)
[2023-01-03 11:04] LABS: Lyme Ab w Rflx to Lyme Confirm Negative (Negative)
[2023-01-05 00:45] LABS: Anaplasma phagocytophilum Negative (Negative); B. miyamotoi PCR Negative (Negative); Babesia divergens/MO-1 Negative (Negative); Babesia duncani Negative (Negative); Babesia microti Negative (Negative); Ehrlichia chaffeensis Negative (Negative); Ehrlichia ewingii/canis Negative (Negative); Ehrlichia muris eauclairensis Negative (Negative)
== END 2023-01-01 19:24 | disposition home or self-care (01) ==
LOC: NCHCN 19:23
PROVIDERS: PCP Internal Medicine; Visit Provider Physician Assistant
DX: R53.83 Other fatigue (principal); M25.59 Pain in other specified joint; I10 Essential (primary) hypertension; R68.83 Chills (without fever); A93.8 Other specified arthropod-borne viral fevers
CPT/HCPCS: 80053; 87798; 84443; 85025; 86618

== ENCOUNTER 2023-03-13 15:37 | Outpatient (REF) | payer BC, SELFPAY ==
[2023-03-18 11:20] LABS: 2-OH-Ethyl-Flurazepam Negative ng/mL (Cutoff: 10); 7-NH-Clonazepam 129 ng/mL (Cutoff: 10); 7-NH-Flunitrazepam Negative ng/mL (Cutoff: 10); Alpha OH-Alprazolam Negative ng/mL (Cutoff: 10); Alpha-OH Midazolam Negative ng/mL (Cutoff: 10); Alpha-OH-Triazolam Negative ng/mL (Cutoff: 10); Alprazolam Negative ng/mL (Cutoff: 10); Benzodiazepines Interpretation Positive.; Chlordiazepoxide Negative ng/mL (Cutoff: 10); Clobazam Negative ng/mL (Cutoff: 10); Clonazepam Negative ng/mL (Cutoff: 10); Diazepam Negative ng/mL (Cutoff: 10); Flurazepam Negative ng/mL (Cutoff: 10); Lorazepam Negative ng/mL (Cutoff: 10); Midazolam Negative ng/mL (Cutoff: 10); N-Desmethylclobazam Negative ng/mL (Cutoff: 10); Prazepam Negative ng/mL (Cutoff: 10); Temazepam Negative ng/mL (Cutoff: 10); Triazolam Negative ng/mL (Cutoff: 10); Zolpidem Carboxylic acid Negative ng/mL (Cutoff: 10)
== END 2023-03-13 15:38 | disposition home or self-care (01) ==
LOC: NCHCN 15:37
PROVIDERS: PCP Internal Medicine; Visit Provider Physician Assistant
DX: F41.9 Anxiety disorder, unspecified (principal)
CPT/HCPCS: 80346

== ENCOUNTER 2023-09-11 18:48 | Outpatient (REF) | payer BC, SELFPAY ==
[2023-09-11 20:38] LABS: Vitamin B12 1564 pg/mL (193-986)
[2023-09-11 20:40] LABS: Folate > 20.0 ng/mL (8.6-20.0)
== END 2023-09-11 18:49 | disposition home or self-care (01) ==
LOC: NCHCN 18:48
PROVIDERS: PCP Internal Medicine; Visit Provider Physician Assistant
DX: R20.2 Paresthesia of skin (principal)
CPT/HCPCS: 82607; 82746; 83735

== ENCOUNTER 2024-03-12 18:01 | Outpatient (REF) | payer BC, SELFPAY ==
[2024-03-12 19:27] LABS: Abs Immature Grans 0.02 10^3/uL (0.0-0.06); Absolute Basophil Count 0.09 10^3/uL (0.0-0.2); Absolute Eosinophil Count 0.12 10^3/uL (0.0-0.7); Absolute Lymphocyte Count 1.93 10^3/uL (1.2-3.4); Absolute Monocyte Count 0.81 10^3/uL (0.1-0.8); Absolute Neutrophil Count 3.93 10^3/uL (1.2-6.7); Basophils % 1.3 %; Eosinophils % 1.7 %; HCT 46.8 % (36.0-46.0); HGB 15.6 g/dL (11.2-15.7); Immature Grans % 0.3 %; MCHC 33.3 % (32.0-36.0); MCV 93 fL (80-95); MPV 10.1 fL (8.0-11.0); Monocytes % 11.7 %; Platelet Count 253 10^3/uL (130-400); RBC 5.03 10^6/uL (3.93-5.22); RDW 13.9 % (11.7-14.6); RDW-SD 47.5 fL
[2024-03-12 19:43] LABS: ALT 26 U/L (14-59); AST 18 U/L (15-37); Albumin 3.7 g/dL (3.4-5.0); Alkaline Phosphatase 99 U/L (46-116); Anion Gap 8.8 mmol/L (3-11); BUN 19 mg/dL (7-18); Bilirubin, Total 0.38 mg/dL (0.2-1.0); CO2 28.2 mmol/L (21.0-32.0); Calcium 9.9 mg/dL (8.5-10.1); Chloride 107 mmol/L (98-107); Estimated GFR 58.39 (mL/min/1.73m2); Glucose 106 mg/dL (74-106); Potassium 4.1 mmol/L (3.5-5.1); Sodium 144 mmol/L (136-145); Total Protein 7.7 g/dL (6.4-8.2)
[2024-03-16 10:34] LABS: Hepatitis C Ab w Rflx HCV PCR Negative (Negative)
== END 2024-03-12 18:02 | disposition home or self-care (01) ==
LOC: NCHCN 18:01
PROVIDERS: PCP Internal Medicine; Visit Provider Physician Assistant
DX: I10 Essential (primary) hypertension (principal); Z11.59 Encounter for screening for other viral diseases
CPT/HCPCS: 80053; 86803; 85025

== ENCOUNTER 2025-02-04 18:26 | Emergency (ER) | payer BC, SELFPAY ==
[2025-02-04] VITALS (34 sets, daily range): BP systolic 145–194; BP diastolic 58–122; PULSE 60–78; RESP 12–25; TEMP 36.3; O2SAT 92–96
--- NOTE | 2025-02-04 18:30 | RT.EKG_ITS ---
APPROVED REPORT Exam: Resting ECG Reason for Exam: Chest Pain Patient Location: E HR:73 bpm ECG Measurements Heart Rate [address] 197 P 81 QRSd 177 QRS -74 QT 476 T 102 QTc 526 Conclusion Atrial-sensed ventricular-paced rhythm...ventricular pacing tracks p-waves sgarbossa negative
--- NOTE | 2025-02-04 19:32 | W.ED.GENAD ---
Discharge Plan Disposition Patient Disposition: Home Condition: Good Discharge Details Clinical Impression: Chest pain Primary Care Provider: Candice Mitchell ED Provider: Amarilis Zaman Home Meds and New Rx's Prescriptions: Continued clonazepam 0.5 mg tablet sertraline 100 mg tablet Patient Comments: TAKE ONE TABLET BY MOUTH EVERY DAY losartan 50 mg Tablet 50 mg PO BID metoprolol succinate 50 mg Tablet Extended Release 24 Hr 50 mg PO HS trazodone 100 mg Tablet 100 mg PO HS aspirin 81 mg Tablet,Delayed Release (Dr/Ec) Discontinued lamotrigine 150 mg Tablet 150 mg PO DAILY atorvastatin 20 mg Tablet 20 mg PO HS magnesium 200 mg Tablet 400 mg PO DAILY omega 8-jgz-cis-fish oil [Fish Oil] 1,000 mg (120 mg-180 mg) Capsule 1 cap PO DAILY diclofenac sodium 3 % gel 1 applic topical BID Qty: 100 0RF Discharge Instructions Instructions: Chest Pain, Adult ED Additional Instructions: Call your primary care doctor in the morning to schedule an appointment for within the next 72 hours to followup on your visit today. You should discuss further workup for your heart including possibly a stress test and/or echocardiogram. At that visit mention that your BNP (a marker for heart failure) was elevated here today as well as your high blood pressure. It is very important that you return to the emergency department immediately for new or worsening symptoms including if your chest pain returns, you have trouble breathing, feel lightheaded, have vomiting, or if you have any other concerns. Discharge Data Discharge Date/Time-TO BE ENTERED AT DEPARTURE: 02/05/25 00:45 HPI General Mode of arrival: ambulatory. Date/Time Provider Initiated Documentation: 02/04/25 18:56. Limitations to Documentation: no limitations. Information obtained by: patient. HPI Narrative: 79yo F wtih hx complete heart block with pacer in place, PVD, HTN, no prior [place] or known CAD, presenting for chest pressure. About 90 minutes prior to arrival noted dull substernal chest pressure/discomfort that started after she finished walking the dog. Associated with some mild shortness of breath, and mild nausea. No vomiting. No lightheadedness. Discomfort does not radiate. No back pain. Has never felt similar pain in the past. Symptoms have been improving since onset, chest discomfort is now entirely gone, does still have some slight shortness of breath and nausea. She is otherwise in her usual state of health with no fevers, chills, rash, abdominal pain, flank pain, dysuria, hematuria, or other concerns. Related Data Home Medications ?Medication ?Instructions ?Recorded ?Confirmed losartan 50 mg tablet 50 mg PO BID 06/12/19 02/04/25 metoprolol succinate 50 mg 50 mg PO HS 06/12/19 02/04/25 tablet,extended release 24 hr trazodone 100 mg tablet 100 mg PO HS 06/12/19 02/04/25 aspirin 81 mg tablet,delayed 02/04/21 release clonazepam 0.5 mg tablet mg 02/04/25 sertraline 100 mg tablet mg 02/04/25 Allergies Allergy/AdvReac Type Severity Reaction Status Date / Time aripiprazole (From [facility]) Allergy Anaphylaxis Unverified 02/04/25 18:37 lisinopril Allergy Anaphylaxis Unverified 02/04/25 18:37 General Stated Complaint: Chest Pain HARIS: 3 Review of Systems Narrative: see HPI Exam Narrative Exam Narrative: General: Alert, well appearing, well nourished, in no acute distress. Head: Normocephalic, atraumatic Neck: Trachea midline, ?Neck supple. ENT: ?MMM.? Cardiac: ?RRR, no murmurs appreciated. Equal radial pulses. Resp: No respiratory distress. CTAB. Abd: ?Soft, non-distended, nontender : ?No suprapubic tenderness. No CVA tenderness. Extremities: ?No deformities.? No peripheral edema. LEs symmetric with no swelling, erythema, or calf tenderness. Neurologic: GCS 15. ? Moves all extremities freely against gravity Course Vital Signs Vital signs: Vital Signs Temperature 36.3 C L 02/04/25 18:27 Pulse 78 02/04/25 18:27 Respiratory Rate 18 02/04/25 18:27 Blood Pressure 184/82 H 02/04/25 18:27 Pulse Oximetry 92 02/04/25 18:27 Temperature 36.3 C L 02/04/25 18:27 Temperature Source Oral 02/04/25 18:27 Pulse 78 02/04/25 18:27 Respiratory Rate 18 02/04/25 18:27 Blood Pressure 184/82 H 02/04/25 18:27 Pulse Oximetry 92 02/04/25 18:27 Oxygen Delivery Method Room Air 02/04/25 18:27 Oxygen Flow Rate 0 02/04/25 18:27 Pain Level 7 02/04/25 18:27 Medical Decision Making 79yo F wtih hx complete heart block with pacer in place, PVD, HTN, no prior [place] or known CAD, presenting for chest pressure. About 90 minutes prior to arrival noted dull substernal chest pressure/discomfort that started after she finished walking the dog. Associated with some mild shortness of breath, and mild nausea. Hypertensive on arrival, vital signs otherwise reassuring. Given 325 of ASA for possible ACS while awaiting results of workup. -EKG v-paced, sgarbossa negative, not suggestive of occlusive [place] -Labs reviewed as below, CBC reassuring with no leukocytosis or anemia, CMP with no actionable abnormalities, lipase mildly elevated at 160 (pt with no epigastric tenderness, low suspicion for pancreatitis), coags normal, dimer elevated at 1200 (will get CTA for dissection and pulmonary embolism- she has no symptoms or exam findings to suggest extremity DVT or warrant US), initial troponin 34, BNP elevated at 1200 however patient with no clinical signs of heart failure. -BP improved to 145/82 -CTA independently reviewed, no aortic dissection or large saddle embolus on my view, radiology read with no acute findings. -Repeat troponins stable at 33, 37 On reassessment patient reports feeling entirely back to normal. BP again elevated however no indication of hypertensive emergency and pressure has been up and down while in the ED; would not treat this emergently. HEART score 5 (history, age, risk factors), moderate risk. BNP is elevated (no recent prior labs here to compare to) however she has no shortness of breath, crackles, hypoxia, LE edema, or pulmonary edema on CT to suggest acute heart failure. Shared decision making with patient; with reassuring workup here appropriate for close outpatient followup, likely to include stress test and echocardiogram. She would like discharge home which is reasonable with her reassuring ED workup. Discharged; discharge instructions and return precautions were reviewed with patient who verbalized understanding. All questions were answered and she is in full agreement with the plan. Lab Data Lab results reviewed: Yes I reviewed the patient's lab results. Labs: Laboratory Tests Range/Units 02/04/25 02/04/25 02/04/25 19:28 20:20 22:50 WBC (4.4-10.8) 10^3/uL 8.70 RBC (3.93-5.22) 10^6/uL 4.69 Hgb (11.2-15.7) g/dL 14.7 Hct (36.0-46.0) % 43.9 MCV (80-95) fL 94 MCH (27.0-33.0) pg 31.3 MCHC (32.0-36.0) % 33.5 RDW (11.7-14.6) % 13.3 Plt Count (130-400) 10^3/uL 245 MPV (8.0-11.0) fL 9.2 Immature Gran % % 0.2 Neutrophils % % 59.9 Lymphocytes % % 25.5 Monocytes % % 11.0 Eosinophils % % 2.6 Basophils % % 0.8 Nucleated RBC % (0.0-0.3) % 0.0 Absolute Neutrophils (1.2-6.7) 10^3/uL 5.20 Absolute Lymphocytes (1.2-3.4) 10^3/uL 2.22 Absolute Monocytes (0.1-0.8) 10^3/uL 0.96 H Absolute Eosinophils (0.0-0.7) 10^3/uL 0.23 Absolute Basophils (0.0-0.2) 10^3/uL 0.07 PT (9.1-11.1) sec 9.9 INR (0.9-1.1) 1.0 APTT (20.6-30.2) sec 24.5 D-Dimer (<500) ng/mlFEU 1238 H Sodium (136-145) mmol/L 142 Potassium (3.5-5.1) mmol/L 3.8 Chloride (98-107) mmol/L 105 Carbon Dioxide (21.0-32.0) mmol/L 28.5 Anion Gap (3-11) mmol/L 8.5 BUN (7-18) mg/dL 20 H Creatinine (0.55-1.02) mg/dL 1.0 Est GFR (CKD-EPI 2020) (mL/min/1.73m2) 58.02 Glucose (74-106) mg/dL 93 Calcium (8.5-10.1) mg/dL 9.6 Magnesium (1.8-2.4) mg/dL 2.1 Total Bilirubin (0.2-1.0) mg/dL 0.3 AST (15-37) U/L 28 ALT (14-59) U/L 27 Alkaline Phosphatase (46-116) U/L 70 Troponin I (<or=51) ng/L 34 33 37 NT-Pro-B Natriuret Pep (<300) pg/mL 1219 H Total Protein (6.4-8.2) g/dL 7.6 Albumin (3.4-5.0) g/dL 4.0 Lipase (<78) U/L 160 H PFSH All Active Problems (Updated 02/04/25 @ 23:32 by Amarilis Zaman MD) Chest pain (Acute) Acute knee pain (Acute) Social History Smoking/Tobacco Use Status: Never Smoking risk assessment performed?: Yes Alcohol Intake: never Substance use type: former substance user Do you feel safe at home: Yes
[2025-02-04 19:41] LABS: Abs Immature Grans 0.02 10^3/uL (0.0-0.06); HCT 43.9 % (36.0-46.0); HGB 14.7 g/dL (11.2-15.7); Immature Grans % 0.2 %; MCH 31.3 pg (27.0-33.0); MCHC 33.5 % (32.0-36.0); MCV 94 fL (80-95); MPV 9.2 fL (8.0-11.0); Platelet Count 245 10^3/uL (130-400); RBC 4.69 10^6/uL (3.93-5.22); RDW 13.3 % (11.7-14.6); RDW-SD 45.8 fL; WBC 8.70 10^3/uL (4.4-10.8)
[2025-02-04] MEDS: Aspirin 81 MG CHEW 324 MG CH (19:41)
[2025-02-04 19:57] LABS: INR 1.0 (0.9-1.1); PTT Activated 24.5 sec (20.6-30.2); Prothrombin Time 9.9 sec (9.1-11.1)
[2025-02-04 20:03] LABS: ALT 27 U/L (14-59); AST 28 U/L (15-37); Albumin 4.0 g/dL (3.4-5.0); Alkaline Phosphatase 70 U/L (46-116); Anion Gap 8.5 mmol/L (3-11); BUN 20 mg/dL (7-18); Bilirubin, Total 0.3 mg/dL (0.2-1.0); CO2 28.5 mmol/L (21.0-32.0); Calcium 9.6 mg/dL (8.5-10.1); Chloride 105 mmol/L (98-107); Estimated GFR 58.02 (mL/min/1.73m2); Glucose 93 mg/dL (74-106); Lipase 160 U/L (<78); Magnesium 2.1 mg/dL (1.8-2.4); NT-proBNP 1219 pg/mL (<300); Potassium 3.8 mmol/L (3.5-5.1); Sodium 142 mmol/L (136-145); Total Protein 7.6 g/dL (6.4-8.2); Troponin I 34 ng/L (<or=51)
[2025-02-04 20:08] LABS: D-Dimer 1238 ng/mlFEU (<500)
[2025-02-04 20:45] LABS: Troponin I 33 ng/L (<or=51)
[2025-02-04] MEDS: Normal Saline - Diluent 50 ML VIAL IJ (20:48)
[2025-02-04] MEDS: Omnipaque 350 MG/ML 100 ML BTL IJ (20:50)
--- NOTE | 2025-02-04 21:04 | DI.CT_ITS ---
Exam(s) CT THORAX ABD/PEL CTA EXAM: CT THORAX ABD/PEL CTA CLINICAL HISTORY: eval for aortic dissection, pulmonary embolism. TECHNIQUE: Imaging Protocol: Axial CT angiography was performed with multi- slice acquisition and multi-planar and/or 3D reconstructions. CONTRAST MATERIAL: Intravenous: Omnipaque 350 Contrast volume:75 ml Oral: no COMPARISON: CT CT CHEST PE CTA from 06/12/2019 FINDINGS: CHEST: Pulmonary Arteries: Exam was timed for evaluation of the aorta. No gross evidence of filling defect to suggest pulmonary emboli. Tracheobronchial tree: Patent where visualized. Mediastinum and Tiffany: No dominant adenopathy or fluid collection. Pulmonary parenchyma: No consolidation or dominant measurable mass. No architectural distortion. Pleura: No effusion or pneumothorax. Heart: The heart is not dilated. No coronary artery calcifications are seen. Aorta: Thoracic aorta non-dilated. [id number] atherosclerotic changes. No evidence of dissection. Bones: Stable mild compression fracture of T12. Degenerative disc changes. Tubes, Catheters, and Lines: Pacemaker. 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 Renal Arteries: The right renal artery is diminutive. There is moderate to severe stenosis at the origin of the left renal artery. Aorta: Severe atherosclerotic calcifications. No evidence of occlusion or significant stenosis. No aneurysm or dissection. Pelvis: Iliac Arteries: There are bilateral common iliac stents. No evidence of occlusion or significant stenosis. Common Femoral Arteries: Saod-bj-vcrchqcz calcific plaque. No evidence of occlusion or significant stenosis. ABDOMEN: Liver: Normal density. No measurable mass. Portal, Superior Mesenteric, and Splenic Veins: Unremarkable. Gallbladder and Biliary Tract: No radiodense calculus or dilation. Pancreas: Normal density, no abnormal calcifications or inflammatory process. Spleen: Normal. Adrenals: No masses seen. Kidneys: Atrophic right kidney. Compensatory hypertrophy of the left kidney. Tiny cysts. No follow-up recommended. No radiodense stones or obstructive uropathy. No masses seen. Bowel: No obstruction or bowel wall thickening. Moderate quantity of stool. Mild diverticulosis of the sigmoid colon. Peritoneal Cavity: No ascites, collection or mesenteric inflammatory response. Lymph Nodes: Within normal limits. Bones: Unremarkable posterior fusion hardware oral at L4-5. Soft Tissues: Unremarkable. PELVIS: Bladder: Symmetric mildly distended. Diffuse wall thickening. Reproductive Organs: Unremarkable as visualized. Lymph Nodes: Within normal limits. Bones: Within normal limits. IMPRESSION: No evidence of aortic dissection. Atherosclerotic changes throughout. 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 Diminutive right renal artery and significant right renal atrophy. Moderate to severe stenosis at the origin of the left renal artery. Bilateral common iliac artery stents are patent. No gross evidence of pulmonary emboli. The preliminary [facility] report was reviewed. RADIATION DOSE DELIVERED: 346.93mGy.cm Total DLP DATA REPOSITORY: All CT scans at this facility are submitted to the National Radiology Data Registry (NRDR) Dose Index Registry (DIR) with the [employer] (A[employer]). RADIATION OPTIMIZATION: All CT scans at this facility use at least one of these dose optimization techniques: automated exposure control; mA and/or kV adjustment per patient size (includes targeted exams where dose is matched to clinical indication); or iterative reconstruction.
--- NOTE | 2025-02-04 21:46 | DI.VRAD_ITS ---
PROCEDURE INFORMATION: Exam: CTA Chest With Contrast CTA Abdomen and Pelvis With Contrast Exam date and time: 02/04/2025 20:44 Age: 79 years old Clinical indication: Other: Eval for aortic dissection, pulmonary embolism TECHNIQUE: Imaging protocol: Computed tomographic angiography of the chest with contrast. Exam focused on the arteries. Computed tomographic angiography of the abdomen and pelvis with contrast. Exam focused on the arteries. 3D rendering (Not supervised by radiologist): MIP and/or 3D reconstructed images were created by the technologist. Contrast material: OMNIPAQUE 350; Contrast volume: 75 ml; Contrast route: INTRAVENOUS (IV); COMPARISON: CT CHEST PE CTA 06/12/2019 22:08 FINDINGS: Tubes, catheters and devices: Left chest wall cardiac device, satisfactory position. VASCULATURE: Pulmonary arteries: This study has not been optimally timed to assess the pulmonary arteries. There are no main, lobar large segmental pulmonary artery emboli. Aorta: Irregular calcified and noncalcified thoracic aortic atherosclerosis without aneurysm or dissection. 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 The SMA is quite diminutive. Both arteries remain patent. Renal arteries: Renal arteries are quite diminutive bilaterally and there is almost certainly [id number] stenosis bilaterally worst on the right. Right iliac arteries: Right and left common iliac artery stents are patent. Distal branches are patent. Left iliac arteries: Please see above. CHEST: Lungs: Mild pulmonary emphysema/hyperinflation, scattered microatelectasis. No airspace disease. Moderate irregular calcified and noncalcified abdominal aortic atherosclerosis without aneurysm or dissection. Pleural spaces: No pneumothorax. No pleural effusion. Heart: Mild cardiomegaly. ABDOMEN AND PELVIS: Liver: No mass. Gallbladder and biliary ducts: No calcified stones. No ductal dilation. Pancreas: No mass. The duct is upper limits of normal. Spleen: No splenomegaly. Adrenal glands: No mass. Kidneys and ureters: No solid mass. No hydronephrosis. Stomach and bowel: Colonic diverticulosis without diverticulitis. No significant enteritis or small bowel obstruction. Postsurgical changes are seen in the stomach. Appendix: No evidence of appendicitis. Intraperitoneal space: No free air. No significant fluid collection. Urinary bladder: Mild generalized bladder wall thickening without surrounding edema very favors chronic neurogenic changes over cystitis. Reproductive: Hysterectomy. Lymph nodes: No enlarged lymph nodes. Bones/joints: Posterior fixation L4-L5. No acute fracture or subluxation. Degenerative changes in the spine. Chronic mild anterior loss height at T12. Soft tissues: Unremarkable. IMPRESSION: 1. No acute findings. 2. Incidental findings as described. Dictated and Authenticated by: Sara Muhammad MD. Orderin Austyn Olmos MD
[2025-02-04 23:12] LABS: Troponin I 37 ng/L (<or=51)
== END 2025-02-05 00:45 | disposition home or self-care (01) ==
PROVIDERS: Emergency Provider Student in an Organized Health Care Education/Training Program; PCP Physician Assistant
DX: R07.9 Chest pain, unspecified (principal); M25.569 Pain in unspecified knee; Z86.79 Personal history of other diseases of the circulatory system; I10 Essential (primary) hypertension; R11.0 Nausea
CPT/HCPCS: 99284; 99285; 36415; 71275; 80053; 83690; 93005; 74174; 83735; 83880; 84484; 85025; 85379; 85610; 85730; 93010; J3490

== ENCOUNTER 2025-03-07 08:31 | Emergency (ER) | payer BC, SELFPAY ==
[2025-03-07] VITALS (14 sets, daily range): BP systolic 153–161; BP diastolic 59–110; PULSE 68–86; RESP 18–27; TEMP 36.6; O2SAT 94–99
--- NOTE | 2025-03-07 08:30 | RT.EKG_ITS ---
APPROVED REPORT Exam: Resting ECG Reason for Exam: Chest Pain Patient Location: E HR:76 bpm ECG Measurements Heart Rate 76 AXIS NJ 197 P 79 QRSd 177 QRS -73 QT 468 T 103 QTc 527 Conclusion Atrial-sensed ventricular-paced rhythm...ventricular pacing tracks p-waves
--- NOTE | 2025-03-07 08:45 | DI.RAD_ITS ---
Exam(s) XR PORTABLE CHEST AP EXAM: XR PORTABLE CHEST AP CLINICAL HISTORY: cough. TECHNIQUE: 2D digital imaging was performed. COMPARISON: CR,XR XR CHEST 2V PA LATERAL from 06/12/2019 FINDINGS: Single AP portable view. Again noted is a bipolar left subclavian pacemaker lead tips in RA and RV, unchanged Heart size is upper normal. The mediastinum is not widened. Lungs are clear. No infiltrates nor obvious pleural effusions. No evidence of pulmonary edema. IMPRESSION: No acute pulmonary findings on this single AP portable view of the chest.Cardiac pacemaker bipolar again noted. DATA REPOSITORY: RADIATION DOSE DELIVERED:
--- NOTE | 2025-03-07 08:47 | W.ED.GENAD ---
Discharge Plan Disposition Patient Disposition: Home Condition: Stable Discharge Details Clinical Impression: Dyspnea, COPD exacerbation Primary Care Provider: Candice Mitchell ED Provider: Jaeml Llanos Home Meds and New Rx's Prescriptions: New prednisone 20 mg tablet 60 mg PO DAILY 4 Days Qty: 12 0RF levofloxacin 750 mg tablet 750 mg PO DAILY Qty: 5 0RF Continued clonazepam 0.5 mg tablet 0.5 mg PO DAILY sertraline 100 mg tablet 100 mg PO DAILY Patient Comments: TAKE ONE TABLET BY MOUTH EVERY DAY atorvastatin 20 mg tablet 20 mg PO DAILY losartan 50 mg Tablet 100 mg PO DAILY metoprolol succinate 50 mg Tablet Extended Release 24 Hr 50 mg PO HS trazodone 100 mg Tablet 100 mg PO HS aspirin 81 mg Tablet,Delayed Release (Dr/Ec) 81 mg PO DAILY Discharge Instructions Additional Instructions: Take the prednisone and antibiotic as prescribed. You can take 2 puffs from the albuterol inhaler every 2-4 hours as needed. Follow-up with your primary care provider especially if you are improving this week. If you feel more ill or have worsening shortness of breath return to the emergency department for reevaluation. HPI General Mode of arrival: ambulatory. Date/Time Provider Initiated Documentation: 03/07/25 08:33. Limitations to Documentation: no limitations. Information obtained by: patient. History of Present Illness 79 year old F presents to the emergency department with the chief complaint of cough, dyspnea, chest pain, described as moderate, Quality is described as aching and sharp, and is localized to the chest. Patient reports no radiation. Patient started experiencing this day(s) (2) and it has been constant. No relieving factors improve symptom(s), No exacerbating factors reported . Patient notes denies fever/chills. Patient did receive the following treatments prior to arrival, none Related Data Home Medications ?Medication ?Instructions ?Recorded ?Confirmed losartan 50 mg tablet 100 mg PO DAILY 06/12/19 03/07/25 metoprolol succinate 50 mg 50 mg PO HS 06/12/19 03/07/25 tablet,extended release 24 hr trazodone 100 mg tablet 100 mg PO HS 06/12/19 03/07/25 aspirin 81 mg tablet,delayed 81 mg PO DAILY 02/04/21 03/07/25 release clonazepam 0.5 mg tablet 0.5 mg PO DAILY 02/04/25 03/07/25 sertraline 100 mg tablet 100 mg PO DAILY 02/04/25 03/07/25 atorvastatin 20 mg tablet 20 mg PO DAILY 03/07/25 03/07/25 levofloxacin 750 mg tablet 750 mg PO DAILY #5 tabs 03/07/25 prednisone 20 mg tablet 60 mg (3 x 20 mg) PO DAILY 4 days 03/07/25 #12 tabs Previous Rx's ?Medication ?Instructions ?Recorded levofloxacin 750 mg tablet 750 mg PO DAILY #5 tabs 03/07/25 prednisone 20 mg tablet 60 mg (3 x 20 mg) PO DAILY 4 days 03/07/25 #12 tabs Allergies Allergy/AdvReac Type Severity Reaction Status Date / Time aripiprazole (From Abilify) Allergy Anaphylaxis Unverified 03/07/25 08:38 lisinopril Allergy Anaphylaxis Unverified 03/07/25 08:38 amoxicillin (From Augmentin) AdvReac Intermediate Other (See Verified 03/07/25 08:38 Comment) clavulanic acid (From AdvReac Intermediate Other (See Verified 03/07/25 08:38 Augmentin) Comment) General Stated Complaint: Chest Pain HARIS: 3 Review of Systems All systems reviewed & are unremarkable except as noted in HPI and below Constitutional Constitutional: Denies chills, Denies fever(s) and Denies weakness Cardiovascular Cardiovascular: Denies chest pain and Reports dyspnea Respiratory Respiratory: Reports cough and Reports dyspnea Gastrointestinal Gastrointestinal: Denies abdominal pain, Denies nausea and Denies vomiting Neurologic Neurologic: Denies weakness Exam Const General: no acute distress Orientation: alert HENMT Head: normal to inspection Ears: external ears normal General nose exam: external nose normal Mouth: moist mucous membranes Eyes General: appearance normal, both eyes and all related structures Neck Neck: normal visual inspection Resp Effort & Inspection: able to speak in complete sentences Auscultation: rhonchi and wheezes Cardio Rate: regular rate Skin General skin exam: no rashes or lesions noted Neuro General: patient alert and patient oriented x3 Extrem General: normal to inspection Psych Mental Status: mental status grossly normal Course Vital Signs Vital signs: Vital Signs Temperature 36.6 C 03/07/25 08:34 Pulse 83 03/07/25 08:34 Respiratory Rate 20 03/07/25 08:34 Blood Pressure 161/110 H 03/07/25 08:34 Pulse Oximetry 95 03/07/25 08:34 Temperature 36.6 C 03/07/25 08:34 Temperature Source Oral 03/07/25 08:34 Pulse 83 03/07/25 08:34 Respiratory Rate 20 03/07/25 08:34 Blood Pressure 161/110 H 03/07/25 08:34 Blood Pressure Position Sitting 03/07/25 08:34 Pulse Oximetry 95 03/07/25 08:34 Oxygen Delivery Method Room Air 03/07/25 08:34 Oxygen Flow Rate 0 03/07/25 08:34 Pain Level 8 03/07/25 08:34 Medical Decision Making 79-year-old female with a history of hypertension, pacemaker, states she has been told she has COPD but does not have inhalers comes in with 2 days of productive cough, shortness of breath and anterior sharp chest pain especially when she coughs. Denies any high fevers or travel. She is speaking full sentences on exam with intermittent harsh sounding cough. She has rhonchi at both lung bases and apical wheezing. No leg swelling or calf tenderness. I suspect COPD exacerbation, will check CBC, CMP, Fluvid, troponin and a chest x-ray. Will also treat with DuoNeb and Solu-Medrol and reassess. Patient has CTA of her chest with similar symptoms a month ago which was negative so I doubt PE. Patient feels better and her lung sounds have improved and only has apical wheezing now. She does not want to stay for delta troponins and given she has had symptoms for well over a day I feel this is reasonable. Chest x-ray on my read is unremarkable and the virtual radiology turnaround time is currently set at 206 minutes. I will call her if they see anything of concern. And we will start her on antibiotics and also prednisone. She will follow-up with her PCP if not improving and return precautions Differential Diagnosis Differential Diagnosis: uri, copd, pnuemonia Medical Records Medical records reviewed: Yes I reviewed the patient's medical records. Lab Data Lab results reviewed: Yes I reviewed the patient's lab results. ECG Data Attestation: I personally reviewed and interpreted this ECG (s) as follows: Prior ECG tracings: available for review Interpretation: paced, rate of 76 neg sgarbossa PFSH All Active Problems (Updated 03/07/25 @ 10:31 by Jamel Llanos MD) COPD exacerbation (Acute) Dyspnea (Acute) Chest pain (Acute) Acute knee pain (Acute) Social History Smoking/Tobacco Use Status: Current every day Tobacco Type: cigarettes Tobacco: How many years used: 50 Smoking risk assessment performed?: Yes Alcohol Intake: never Drug use: Current Sobriety Substance use type: former substance user Do you feel safe at home: Yes
[2025-03-07 09:06] LABS: BE (Venous) 3 mmol/L (-2-3); HCO3 (Venous) 29 mmol/L (23-28); O2 Sat (Venous) 66 %; TCO2 (Venous) 26 mmol/L (24-29); pCO2 (Venous) 52 mmHg (41-51); pO2 (Venous) 34 mmHg
[2025-03-07 09:07] LABS: Abs Immature Grans 0.02 10^3/uL (0.0-0.06); HCT 41.1 % (36.0-46.0); HGB 13.5 g/dL (11.2-15.7); Immature Grans % 0.2 %; MCH 31.1 pg (27.0-33.0); MCHC 32.8 % (32.0-36.0); MCV 95 fL (80-95); MPV 9.5 fL (8.0-11.0); Platelet Count 267 10^3/uL (130-400); RBC 4.34 10^6/uL (3.93-5.22); RDW 12.7 % (11.7-14.6); RDW-SD 44.2 fL; WBC 8.41 10^3/uL (4.4-10.8)
[2025-03-07] MEDS: methylPREDNISolone SUCC 125 MG VIAL IVP (09:18)
[2025-03-07] MEDS: Normal Saline Flush 10 ML SYR IVP (09:18)
[2025-03-07] MEDS: Albuterol/Ipratropium 3 ML UPD VIAL UPD (09:19)
[2025-03-07 09:27] LABS: ALT 31 U/L (14-59); AST 28 U/L (15-37); Albumin 3.7 g/dL (3.4-5.0); Alkaline Phosphatase 94 U/L (46-116); Anion Gap 9.8 mmol/L (3-11); BUN 18 mg/dL (7-18); Bilirubin, Total 0.2 mg/dL (0.2-1.0); CO2 30.2 mmol/L (21.0-32.0); Calcium 9.7 mg/dL (8.5-10.1); Chloride 104 mmol/L (98-107); Estimated GFR 65.84 (mL/min/1.73m2); Glucose 117 mg/dL (74-106); Magnesium 2.2 mg/dL (1.8-2.4); Potassium 3.7 mmol/L (3.5-5.1); Sodium 144 mmol/L (136-145); Total Protein 7.5 g/dL (6.4-8.2); Troponin I 20 ng/L (<or=51)
[2025-03-07 09:30] LABS: COVID-19 PCR Negative (Negative); RSV PCR Negative (Negative)
[2025-03-07] MEDS: levoFLOXacin 500 MG, levoFLOXacin 250 MG 750 MG PO (10:51)
[2025-03-07] MEDS: Albuterol HFA 8 GM 60 PUFF INH IH (10:52)
--- NOTE | 2025-03-07 11:28 | DI.VRAD_ITS ---
PROCEDURE INFORMATION: Exam: XR Chest Exam date and time: 03/07/2025 9:12 AM Age: 79 years old Clinical indication: Cough TECHNIQUE: Imaging protocol: Radiologic exam of the chest. Views: 1 view. COMPARISON: CT THORAX ABD/PEL CTA 02/04/2025 8:44 PM FINDINGS: Tubes, catheters and devices: Pacemaker present left chest wall. Lungs: Unremarkable. No consolidation. Pleural spaces: Unremarkable. No pleural effusion. No pneumothorax. Heart/Mediastinum: Unremarkable. No cardiomegaly. Bones/joints: Unremarkable. IMPRESSION: No acute cardiopulmonary findings. Dictated and Authenticated by: Alexey Stevens MD. Orderin Romi Mccullough MD
== END 2025-03-07 10:56 | disposition home or self-care (01) ==
PROVIDERS: Emergency Provider Emergency Medicine; PCP Physician Assistant
DX: J44.1 Chronic obstructive pulmonary disease with (acute) exacerbation (principal); R06.00 Dyspnea, unspecified
CPT/HCPCS: 36415; 80053; 82805; 87637; 93005; 94640; 96374; 99284; 71045; 83735; 84484; 85025; 93010; J2919; J7620